=== PATIENT | female | born 1990 | race Caucasian/White ===

== ENCOUNTER 2016-09-03 22:20 | Emergency (ER) | payer MEDICAID ==
[~2016-09-03] VITALS: Ht 171.4 cm; Wt 99.1 kg
[~2016-09-03 22:20] MED LIST: PREN-155 PO
[2016-09-04] MEDS ORDERED: IBUPROFEN 800 MG TABLET PO ONE (00:15)
[2016-09-04] MEDS ORDERED: ONDANSETRON HCL 4 MG TABLET PO ONE (00:15)
[2016-09-04 01:39] VITALS: BP 127/75
== END 2016-09-04 01:42 | disposition home or self-care (01) ==
LOC: EMS 22:22
DX: J21.9 Acute bronchiolitis, unspecified (principal); A08.4 Viral intestinal infection, unspecified
CPT/HCPCS: 71020; 81025; 93005; 99284; Q0162

== ENCOUNTER 2017-03-14 16:30 | Emergency (ER) | payer MEDICAID ==
[~2017-03-14] VITALS: Ht 170.2 cm; Wt 100.0 kg
[2017-03-14 17:21] LABS: BASOPHILS # (AUTO) 0.06 K/uL (0.00-0.20); BASOPHILS % (AUTO) 0.6 % (0.0-2.0); EOSINOPHILS # (AUTO) 0.09 K/uL (0.00-0.70); EOSINOPHILS % (AUTO) 0.79 % (1.0-6.0); HEMATOCRIT 41.5 % (36-46); LYMPHOCYTES # (AUTO) 2.7 K/uL (1.0-4.8); LYMPHOCYTES % (AUTO) 24.2 % (22.0-44.0); MEAN CORPUSCULAR HEMOGLOBIN 29.1 pg (26.0-34.0); MEAN CORPUSCULAR HGB CONC 33.8 G/dL (31.0-37.0); MEAN CORPUSCULAR VOLUME 86 fL (80-100); MONOCYTES # (AUTO) 0.6 K/uL (0.1-1.0); MONOCYTES % (AUTO) 5.7 % (2.0-9.0); NEUTROPHILS # (AUTO) 7.7 K/uL (1.8-7.7); NEUTROPHILS % (AUTO) 68.8 % (40.0-70.0); PLATELET COUNT (AUTO) 195 K/uL (150-450); RED BLOOD CELL COUNT(AUTO) 4.83 MIL/uL (4.00-5.20); RED CELL DISTRIBUTION WIDTH 13.7 % (11.5-14.5)
[2017-03-14 17:39] LABS: ANION GAP 11 mmol/L (8-16); CALCIUM, TOTAL 9.3 mg/dL (8.8-10.5); CARBON DIOXIDE 25 mmol/L (22-29); CHLORIDE 102 mmol/L (98-107); CREATININE 0.87 mg/dL (0.60-1.30); GLOMERULAR FILTR. RATE CALC > 60 mL/min (>60); GLUCOSE,RANDOM 107 mg/dL (70-110); POTASSIUM 3.8 mmol/L (3.5-5.1); SODIUM SERUM 138 mmol/L (136-145); UREA NITROGEN, BLOOD 14 mg/dL (7-18)
[2017-03-14 17:42] LABS: ALANINE AMINOTRANSFERASE 34 U/L (12-78); ALBUMIN 3.8 g/dL (3.4-5.0); ALKALINE PHOSPHATASE 92 U/L (46-116); ASPARTATE AMINOTRANSFERASE 20 U/L (15-37); BILIRUBIN,TOTAL 0.4 mg/dL (0.1-1.0); LIPASE 91 U/L (73-393); TOTAL PROTEIN, SERUM 7.6 g/dL (6.4-8.2)
[2017-03-14 17:55] LABS: BILIRUBIN,URINE NEGATIVE (NEGATIVE); GLUCOSE, URINE (UA) NEGATIVE (NEGATIVE); KETONES,URINE NEGATIVE (NEGATIVE); LEUKOCYTE ESTERASE ,URINE NEGATIVE (NEGATIVE); NITRATE,URINE POSITIVE (NEGATIVE); OCCULT BLOOD,URINE MODERATE (NEGATIVE); PROTEIN,URINE NEGATIVE (NEGATIVE)
[2017-03-14 18:01] LABS: APPEARANCE,URINE SLIGHTLY CLOUDY (CLEAR); BACTERIA,URINE Moderate /HPF (None Seen); SQUAMOUS EPITHELIAL CELL,UR Many /LPF (None Seen)
[2017-03-14 21:02] VITALS: BP 128/87
== END 2017-03-14 21:05 | disposition home or self-care (01) ==
LOC: EMS 16:35
DX: R11.2 Nausea with vomiting, unspecified (principal); R19.7 Diarrhea, unspecified
CPT/HCPCS: 87086; 99284

== ENCOUNTER 2017-06-18 18:44 | Emergency (ER) | payer MEDICAID ==
[~2017-06-18] VITALS: Ht 170.2 cm; Wt 100.0 kg
[2017-06-18 22:01] VITALS: BP 127/76
== END 2017-06-18 22:04 | disposition home or self-care (01) ==
LOC: EMS 18:44
DX: S20.229A Contusion of unspecified back wall of thorax, initial encounter (principal); W01.0XXA Fall on same level from slipping, tripping and stumbling without subsequent striking against object, initial encounter; Y93.89 Activity, other specified; Y92.89 Other specified places as the place of occurrence of the external cause; Y99.8 Other external cause status
CPT/HCPCS: 71101; 72070; 99284

== ENCOUNTER 2019-05-29 18:50 | Emergency (ER) | payer MEDICAID ==
[~2019-05-29] VITALS: Ht 170.2 cm; Wt 101.4 kg
[2019-05-29] MEDS ORDERED: ACETAMINOPHEN 500 MG TABLET PO ONE (22:15)
[2019-05-29] MEDS ORDERED: IBUPROFEN 800 MG TABLET PO ONE (22:15)
[2019-05-29 22:49] VITALS: BP 148/78
== END 2019-05-29 22:45 | disposition home or self-care (01) ==
LOC: EMS 18:52
DX: B34.9 Viral infection, unspecified (principal); R42 Dizziness and giddiness; Z03.818 Encounter for observation for suspected exposure to other biological agents ruled out
CPT/HCPCS: 87635

== ENCOUNTER 2021-12-20 08:56 | Emergency (ER) | payer MEDICAID ==
[~2021-12-20] VITALS: Ht 170.2 cm; Wt 87.7 kg
[2021-12-20] MEDS ORDERED: KETOROLAC TROMETHAMINE 60 MG/2 ML VIAL IM ONE (09:30)
[2021-12-20] MEDS ORDERED: OxyCODONE HCL/ACETAMINOPHEN 5-325 MG TABLET PO ONE (12:15)
[2021-12-20 12:19] VITALS: BP 140/82
== END 2021-12-20 13:09 | disposition home or self-care (01) ==
LOC: EMS 08:56
DX: S09.90XA Unspecified injury of head, initial encounter (principal); M25.532 Pain in left wrist; L40.9 Psoriasis, unspecified; W18.11XA Fall from or off toilet without subsequent striking against object, initial encounter; Y93.89 Activity, other specified; Y92.89 Other specified places as the place of occurrence of the external cause; Y99.8 Other external cause status
CPT/HCPCS: 99284; 70450; 73110; 29125; 96372; J1885

== ENCOUNTER 2023-05-22 12:20 | Emergency (ER) | payer MEDICAID ==
[~2023-05-22] VITALS: Ht 172.7 cm; Wt 111.4 kg
[2023-05-22 13:53] VITALS: BP 147/89; PULSE 78; RESP 18; TEMP 97.8
[2023-05-22] MEDS: IBUPROFEN 600 MG TABLET PO ONE (14:32)
[2023-05-22] MEDS ORDERED: IBUP-1492 PO (14:37)
== END 2023-05-22 15:39 | disposition home or self-care (01) ==
LOC: EMS 12:20
DX: S83.92XA Sprain of unspecified site of left knee, initial encounter (principal); X58.XXXA Exposure to other specified factors, initial encounter; Y93.89 Activity, other specified; Y92.89 Other specified places as the place of occurrence of the external cause; Y99.8 Other external cause status
CPT/HCPCS: 99283